=== PATIENT | male | born 1995 | race Two or more races ===

== ENCOUNTER 2024-09-09 09:30 | Emergency (ER) | payer OTHER ==
[~2024-09-09] VITALS: Ht 175.3 cm; Wt 77.1 kg
[2024-09-09] MEDS ORDERED: KETOROLAC TROMETHAMINE 60 MG VIAL IM ONE (10:01)
[2024-09-09] MEDS ORDERED: KETOROLAC TROMETHAMINE 60 MG VIAL IM STA (10:01)
== END 2024-09-09 10:11 | disposition home or self-care (01) ==
LOC: ER 09:30
DX: M13.88 Other specified arthritis, other site (principal)